=== PATIENT | male | born 1960 | race African-American/Black ===

== ENCOUNTER 2019-09-12 01:26 | Emergency (ER) | payer MEDICAID ==
[~2019-09-12] VITALS: Ht 172.7 cm; Wt 98.0 kg
[2019-09-12 01:32] VITALS: BP 136/81
== END 2019-09-12 04:14 | disposition left against medical advice (07) ==
LOC: ER 01:26
DX: Z53.21 Procedure and treatment not carried out due to patient leaving prior to being seen by health care provider (principal)